=== PATIENT | female | born 1940 | race Caucasian/White ===

== ENCOUNTER → 2017-09-07 | Outpatient (CLI) | payer MEDICARE, OTHER ==
[~2017-09-07] MED LIST: ALPR.25; ASPI81CH; CAND16; CLOB.05TO; EZET10; GABA100
== END ==
LOC: PLD 07:26 → LAB SHORT 07:26
DX: C44.629 Squamous cell carcinoma of skin of left upper limb, including shoulder (principal)
CPT/HCPCS: 88305

== ENCOUNTER 2018-08-15 10:13 | Day surgery (SDC) | payer MEDICARE, OTHER ==
[~2018-08-15] VITALS: Ht 165.1 cm; Wt 84.4 kg
[~2018-08-15 10:13] MED LIST changes: -CAND16; +CAND16 PO
--- NOTE | 2018-08-15 12:45 | NUR ---
08/15/18 [place] LATE ENTRY NARRATIVE DISCHARGE INSTRUCTIONS REVIEWED WITH PATIENT, NO QUESTIONS AT THIS TIME. NURSE ASSISTED PATIENT TO LOBBY
== END 2018-08-15 11:50 | disposition home or self-care (01) ==
LOC: ORSCSDS 10:13
PROVIDERS: Anesthesiology
PROC: 3E0R33Z Introduction of Anti-inflammatory into Spinal Canal, Percutaneous Approach (ICD-10-PCS; principal; 2018-08-15 11:30)
DX: M51.16 Intervertebral disc disorders with radiculopathy, lumbar region (principal); I10 Essential (primary) hypertension; E78.00 Pure hypercholesterolemia, unspecified; E66.9 Obesity, unspecified; Z68.32 Body mass index [BMI] 32.0-32.9, adult; Z79.899 Other long term (current) drug therapy; Z79.82 Long term (current) use of aspirin
CPT/HCPCS: J1040

== ENCOUNTER 2018-10-09 13:27 | Day surgery (SDC) | payer MEDICARE, OTHER ==
[~2018-10-09] VITALS: Ht 165.1 cm; Wt 85.9 kg
== END 2018-10-09 15:12 | disposition home or self-care (01) ==
LOC: ORSCSDS 13:27
PROVIDERS: Anesthesiology
PROC: 3E0R33Z Introduction of Anti-inflammatory into Spinal Canal, Percutaneous Approach (ICD-10-PCS; principal; 2018-10-09 14:30)
DX: M51.16 Intervertebral disc disorders with radiculopathy, lumbar region (principal); I10 Essential (primary) hypertension; E78.00 Pure hypercholesterolemia, unspecified; E66.01 Morbid (severe) obesity due to excess calories; Z68.31 Body mass index [BMI] 31.0-31.9, adult; Z79.82 Long term (current) use of aspirin; Z79.899 Other long term (current) drug therapy
CPT/HCPCS: J1040

== ENCOUNTER → 2018-11-22 | Outpatient (CLI) | payer MEDICARE, OTHER | END | disposition home or self-care (01) | LOC: PLD 08:29 → LAB SHORT 08:29 | DX: L81.4 Other melanin hyperpigmentation (principal) | CPT/HCPCS: 88305 ==

== ENCOUNTER → 2019-12-05 | Outpatient (CLI) | payer MEDICARE, OTHER | END | disposition home or self-care (01) | LOC: PLD 14:41 → LAB SHORT 14:41 | DX: C44.712 Basal cell carcinoma of skin of right lower limb, including hip (principal) | CPT/HCPCS: 88305 ==

== ENCOUNTER → 2020-01-14 | Outpatient (CLI) | payer MEDICARE, OTHER | END | disposition home or self-care (01) | LOC: PLD 07:40 → LAB SHORT 07:40 | DX: C44.722 Squamous cell carcinoma of skin of right lower limb, including hip (principal); L57.0 Actinic keratosis; L81.4 Other melanin hyperpigmentation | CPT/HCPCS: 88305 ==

== ENCOUNTER 2020-12-29 11:58 | Day surgery (SDC) | payer MEDICARE, OTHER ==
[~2020-12-29] VITALS: Ht 165.1 cm; Wt 81.5 kg
[~2020-12-29 11:58] MED LIST changes: +ACET500 PO; +Aspirin EC81 MG PO; +BENADRYL25 MG PO; +BISA5EC PO; +CHOLEST OFF PO; +FIBER GUMMIES PO; +FOLIC ACID0.4 MG PO; +IBUP200 PO; +KRILL OIL 1,001 EACH PO; +LATANOPROST2.5 M3 BOTHEYES; +Lutein6 MG PO; +MELA3 PO; +MIRALAX17 GM PO; +MULTIPLE VITAM1 EACH PO; +OMEGA-3 FISH O1 EA13 PO; +UBID10 PO
== END 2020-12-29 15:43 | disposition home or self-care (01) ==
LOC: ORSCSDS 11:58
PROVIDERS: Internal Medicine Gastroenterology
PROC: 0DBL8ZX Excision of Transverse Colon, Via Natural or Artificial Opening Endoscopic, Diagnostic (ICD-10-PCS; principal; 2020-12-29 14:15)
PROC: 0DBM8ZX Excision of Descending Colon, Via Natural or Artificial Opening Endoscopic, Diagnostic (ICD-10-PCS; principal; 2020-12-29 14:15)
DX: Z12.11 Encounter for screening for malignant neoplasm of colon (principal); D12.3 Benign neoplasm of transverse colon; D12.4 Benign neoplasm of descending colon; K57.30 Diverticulosis of large intestine without perforation or abscess without bleeding; Z86.010 Personal history of colon polyps
CPT/HCPCS: 88305; J2704; J7120

== ENCOUNTER → 2022-08-03 | Outpatient (CLI) | payer MEDICARE, OTHER | END | disposition home or self-care (01) | LOC: LAB SHORT 11:33 | DX: D04.71 Carcinoma in situ of skin of right lower limb, including hip (principal) | CPT/HCPCS: 88305 ==

== ENCOUNTER 2022-09-08 08:41 | Day surgery (SDC) | payer MEDICARE, OTHER ==
[~2022-09-08] VITALS: Ht 165.1 cm; Wt 85.5 kg
--- NOTE | 2022-09-08 09:01 | NUR ---
09/08/22 0901 Valerie Urena AT 0858 PLEDGET AT [phone]
== END 2022-09-08 10:50 | disposition home or self-care (01) ==
LOC: ORSCSDS 08:41
PROVIDERS: Ophthalmology
PROC: 08RJ3JZ Replacement of Right Lens with Synthetic Substitute, Percutaneous Approach (ICD-10-PCS; principal; 2022-09-08 10:00)
DX: H25.13 Age-related nuclear cataract, bilateral (principal); I10 Essential (primary) hypertension; Z79.899 Other long term (current) drug therapy; Z79.82 Long term (current) use of aspirin
CPT/HCPCS: J2001; J2250; J3010; J3301; J7040; V2632

== ENCOUNTER 2022-09-22 08:12 | Day surgery (SDC) | payer MEDICARE, OTHER ==
[~2022-09-22] VITALS: Ht 165.1 cm; Wt 84.6 kg
[2022-09-22] MEDS ORDERED: MELO7.5 PO (08:51)
--- NOTE | 2022-09-22 08:59 | NUR ---
09/22/22 0859 Rosamaria Hernandez TETRANAHEEDINE IN AT 0849 PLEGETT IN AT [phone]
== END 2022-09-22 10:25 | disposition home or self-care (01) ==
LOC: ORSCSDS 08:12
PROVIDERS: Ophthalmology
PROC: 08RK3JZ Replacement of Left Lens with Synthetic Substitute, Percutaneous Approach (ICD-10-PCS; principal; 2022-09-22 09:30)
DX: H25.12 Age-related nuclear cataract, left eye (principal); I10 Essential (primary) hypertension; Z79.899 Other long term (current) drug therapy
CPT/HCPCS: J2001; J2250; J3010; J3301; J7040; V2632

== ENCOUNTER → 2023-06-07 | Outpatient (CLI) | payer MEDICARE, OTHER ==
[~2023-06-07] MED LIST changes: +MELO7.5 PO
== END ==
LOC: PLD 14:46 → LAB SHORT 14:46
DX: L57.0 Actinic keratosis (principal)
CPT/HCPCS: 88305